=== PATIENT | female | born 1980 | race African-American/Black ===

== ENCOUNTER 2017-09-23 10:25 | Inpatient (IN) | payer MEDICARE ==
[~2017-09-23] VITALS: Ht 162.6 cm; Wt 64.4 kg
[~2017-09-23 10:25] MED LIST: NIFE30TA8 PO; OCD MT; PREN-88 PO
[2017-09-23] MEDS ORDERED: SODIUM CHLORIDE 0.9% 1,000 ML IV ONE ×2 (11:42→16:30)
[2017-09-23] MEDS ORDERED: KETOROLAC 30MG/ML VIAL IV STA (11:42)
[2017-09-23] MEDS ORDERED: ONDANSETRON HCL 4MG/2ML VIAL IV STA (11:42)
[2017-09-23 12:22] LABS: HEMATOCRIT. 42.2 % (36.0-48.0); HEMOGLOBIN. 14.8 g/dL (12.0-16.0); MEAN CORPUSCULAR HEMOGLOBIN 29.7 pg (28.0-32.0); MEAN CORPUSCULAR VOLUME 84.9 fL (81.0-99.0); MEAN PLATELET VOLUME 8.1 fl (7.4-10.4); PLATELET 281 x1000/uL (130-400); RED BLOOD CELL COUNT 4.97 mill/uL (4.2-5.4); RED CELL DISTRIBUTION WIDTH 12.7 % (11.6-14.6)
[2017-09-23 12:27] LABS: CLARITY URINE CLOUDY (CLEAR); COLOR URINE DARK YELLOW (YELLOW); KETONES URINE 4+ (NEGATIVE); LEUKOCYTE ESTERASE URINE 2+ (NEGATIVE); NITRITE URINE NEGATIVE (NEGATIVE); OCCULT BLOOD URINE NEGATIVE (NEGATIVE); PH URINE 5.5 (4.5-8.0); PROTEIN URINE 2+ (NEGATIVE); SPECIFIC GRAVITY URINE 1.034 (1.005-1.030)
[2017-09-23 12:27] LABS: CHLORIDE 106 mEq/L (98-107)
[2017-09-23 12:36] LABS: CARBON DIOXIDE 24 mEq/L (21-32); PROTHROMBIN TIME 10.8 sec (9.4-11.6)
[2017-09-23 12:56] LABS: PLATELET ESTIMATE NORMAL
[2017-09-23 13:08] LABS: HCG SCREEN NEGATIVE
[2017-09-23] MEDS ORDERED: CEFTRIAXONE 1 G PREMIX 50 ML IV ONE (14:45)
[2017-09-23] MEDS ORDERED: MORPHINE SULFATE 2 MG/ML CPJ (NOT FOR IM USE) IV ONE (15:45)
[2017-09-23] MEDS ORDERED: MORPHINE SULFATE 4 MG/ML CPJ (NOT FOR IM USE) IV NR (16:15)
[2017-09-23] MEDS ORDERED: ONDANSETRON HCL 4MG/2ML VIAL IV ONE (16:30)
[2017-09-23 20:00] VITALS: BP 117/88
[2017-09-23 23:00] VITALS: BP 136/87
[2017-09-24] VITALS: BP 117/88
[2017-09-24] MEDS ORDERED: ONDANSETRON HCL 4MG/2ML VIAL IM SCH (00:15)
[2017-09-24] MEDS ORDERED: DEXT 5%/0.45% NACL 1000ML 1,000 ML IV SCH (01:00)
[2017-09-24] MEDS ORDERED: ONDANSETRON HCL 4MG/2ML VIAL IV PRN (01:00)
[2017-09-24] MEDS ORDERED: DEXT 5%/0.45% NACL KCL 20MEQ/L 1,000 ML IV SCH (02:00)
[2017-09-24 06:37] VITALS: BP 136/84
== END 2017-09-24 03:00 | disposition short-term general hospital (02) | DRG 241 ==
LOC: ER 11:07 → 6EST 16:22 → ENRESERV 20:15 → CANRESERV 20:15
PROVIDERS: ADMIT Internal Medicine; ATTEND Internal Medicine
DX: K29.70 Gastritis, unspecified, without bleeding (principal); I10 Essential (primary) hypertension; G43.909 Migraine, unspecified, not intractable, without status migrainosus; Z90.49 Acquired absence of other specified parts of digestive tract; Z79.899 Other long term (current) drug therapy
CPT/HCPCS: 36415; 76700; 80053; 81001; 83690; 84703; 85025; 85610; 87086; 96361; 96365; 96372; 96375; 96376; 99285; J0696; J1885; J2270; J2405; J7030